=== PATIENT | male | born 1955 | race African-American/Black ===

== ENCOUNTER 2016-06-23 09:03 | Emergency (ER) | payer MEDICAID ==
[~2016-06-23] VITALS: Ht 177.8 cm; Wt 123.0 kg
[2016-06-23] MEDS ORDERED: LABETALOL HCL 20MG/4ML CARPUJECT IV PRN (09:45)
[2016-06-23] MEDS ORDERED: CLONIDINE 0.2MG TABLET PO ONE (10:00)
[2016-06-23 10:55] VITALS: BP 190/113
== END 2016-06-23 10:58 | disposition home or self-care (01) ==
LOC: ER 09:19
DX: M79.672 Pain in left foot (principal); G89.29 Other chronic pain; I10 Essential (primary) hypertension
CPT/HCPCS: 99283; Z7610